=== PATIENT | female | born 1965 | race Caucasian/White ===

== ENCOUNTER 2017-12-23 13:50 | Emergency (ER) | payer OTHER, SELFPAY ==
[2017-12-23] MEDS: Lidocaine 1% Multi-Dose 50 ML VIAL IJ (14:00)
== END 2017-12-23 14:22 | disposition home or self-care (01) ==
PROVIDERS: Emergency Provider Emergency Medicine; PCP Internal Medicine
DX: S81.822A Laceration with foreign body, left lower leg, initial encounter (principal); W26.0XXA Contact with knife, initial encounter; Y99.0 Civilian activity done for income or pay
CPT/HCPCS: 12001

== ENCOUNTER 2018-09-27 10:33 | Emergency (ER) | payer MEDICAID, SELFPAY ==
[2018-09-27 10:36] VITALS: BP 128/74; PULSE 70; RESP 14; TEMP 36.7; O2SAT 98
--- NOTE | 2018-09-27 10:56 | W.ED.GENAD ---
Discharge Plan Disposition Patient Disposition: HOME Condition: Stable Discharge Details Chief Complaint: RashLesion Clinical Impression: Contact dermatitis Primary Care Provider: Arie Hill ED Provider: Rene Luevano Home Meds and New Rx's Prescriptions: No Action Mirena 1 EACH intrauterine device 1 ea Intrauterine DIRECTED RF: 0 gabapentin 600 MG tablet 2,300 mg PO HS RF: 0 bupropion HCl 75 MG tablet 200 mg PO DAILY RF: 0 Vyvanse 70 MG capsule 70 mg PO DAILY RF: 0 ibuprofen 800 MG tablet 800 mg PO PRN PRNRF: 0 Discharge Instructions Instructions: Dermatitis (ED) Additional Instructions: use over the counter hydrocotrisone cream. You can use benadryl as needed for itching as well, follow dosing instructions on packing if not better in a week see your primary care provider return to the emergency department if you develop redness that is spreading or fevers Discharge Data Discharge Date/Time-TO BE ENTERED AT DEPARTURE: 09/27/18 11:00 Medical Decision Making 52 yo female states she put a peter black head removal cream on her face Monday. Has had itching and been picking at the skin since. Dneies fevers, severe pain. Has pick fishman on lower face with no erythema, small papules across lower face consistent with local dermatitis. Will have her start topical steroids and return precautions given, advised f/u with pcp. Has no findings to suggest infection at this time Differential Diagnosis contact dermatitis, pruritis HPI General Mode of arrival: ambulatory. Date/Time Provider Initiated Documentation: 09/27/18 10:39. Limitations to Documentation: no limitations. Information obtained by: patient. History of Present Illness 52 year old F presents to the emergency department with the chief complaint of face rash, described as moderate, Quality is described as other (itching), and is localized to the face. Patient reports no radiation. Patient started experiencing this day(s) (2) and it has been constant. No relieving factors improve symptom(s), No exacerbating factors reported . Patient notes no other symptoms.. Patient did receive the following treatments prior to arrival, none Related Data Home Medications Medication Instructions Recorded Confirmed levonorgestrel [Mirena] 1 ea INTRAUTERINE DIRECTED 12/11/12 09/27/18 gabapentin 2,300 mg PO HS 08/28/14 09/27/18 ibuprofen 800 mg PO PRN PRN 01/22/15 09/27/18 bupropion HCl 200 mg PO DAILY tab-cap 10/15/15 09/27/18 lisdexamfetamine [Vyvanse] 70 mg PO DAILY tab-cap 02/18/16 09/27/18 Allergies Allergy/AdvReac Type Severity Reaction Status Date / Time No Known Allergies Allergy Unverified 09/27/18 10:41 General Stated Complaint: RashLesion LORETO: 3 Review of Systems Review of Systems All systems reviewed & are unremarkable except as noted in HPI and below Constitutional Denies chills, Denies fever(s) and Denies weakness Cardiovascular Denies chest pain and Denies dyspnea Respiratory Denies cough and Denies dyspnea Gastrointestinal Denies abdominal pain, Denies nausea and Denies vomiting Musculoskeletal Denies joint swelling Neurologic Denies weakness PFSH Medical History Abnormal Pap Anxiety Depression Substance abuse Ulcerative colitis manic disorder Surgical History Cervical Procedure Family History Other Diabetes Hyperlipidemia Mental disorder Personal history of malignant neoplasm Social History Smoking/Tobacco Use Status: Never Alcohol Intake: former Drug use: Current Sobriety Do you feel safe at home: Yes Do you feel safe in your relationship?: Yes Exam Const General: no acute distress Orientation: alert HENMT Head: normal to inspection Ears: external ears normal General nose exam: external nose normal Mouth: moist mucous membranes Eyes General: appearance normal, both eyes and all related structures Neck Neck: normal visual inspection Resp Effort & Inspection: normal respiratory effort and able to speak in complete sentences Cardio Rate: regular rate Skin General skin exam: elasticity normal Neuro General: alert and oriented x3 Extrem General: normal to inspection Psych Mental Status: mental status grossly normal Course Vital Signs Temperature 36.7 C 09/27/18 10:36 Pulse 70 09/27/18 10:36 Respiratory Rate 14 09/27/18 10:36 Blood Pressure 128/74 09/27/18 10:36 Pulse Oximetry 98 09/27/18 10:36 Temperature 36.7 C 09/27/18 10:36 Temperature Source Skin 09/27/18 10:36 Pulse 70 09/27/18 10:36 Respiratory Rate 14 09/27/18 10:36 Respiratory Effort 09/27/18 10:42 Blood Pressure 128/74 09/27/18 10:36 Blood Pressure Position Sitting 09/27/18 10:36 Pulse Oximetry 98 09/27/18 10:36 Oxygen Delivery Method Room Air 09/27/18 10:36 Oxygen Flow Rate 0 09/27/18 10:36 Pain Level 8 09/27/18 10:36
--- NOTE | 2018-09-27 10:59 | ED.GENADUL_ITS ---
Discharge Plan Disposition Patient Disposition: HOME Condition: Stable Discharge Details Chief Complaint: RashLesion Clinical Impression: Contact dermatitis Primary Care Provider: Arie Hill ED Provider: Rene Luevano Home Meds and New Rx's Prescriptions: No Action Mirena 1 EACH intrauterine device 1 ea Intrauterine DIRECTED RF: 0 gabapentin 600 MG tablet 2,300 mg PO HS RF: 0 bupropion HCl 75 MG tablet 200 mg PO DAILY RF: 0 Vyvanse 70 MG capsule 70 mg PO DAILY RF: 0 ibuprofen 800 MG tablet 800 mg PO PRN PRNRF: 0 Discharge Instructions Instructions: Dermatitis (ED) Additional Instructions: use over the counter hydrocotrisone cream. You can use benadryl as needed for itching as well, follow dosing instructions on packing if not better in a week see your primary care provider return to the emergency department if you develop redness that is spreading or fevers Discharge Data Discharge Date/Time-TO BE ENTERED AT DEPARTURE: 09/27/18 11:00 Medical Decision Making 52 yo female states she put a peter black head removal cream on her face Monday. Has had itching and been picking at the skin since. Dneies fevers, severe pain. Has pick fishman on lower face with no erythema, small papules across lower face consistent with local dermatitis. Will have her start topical steroids and return precautions given, advised f/u with pcp. Has no findings to suggest infection at this time Differential Diagnosis contact dermatitis, pruritis HPI General Mode of arrival: ambulatory . Date/Time Provider Initiated Documentation: 09/27/18 10:39 . Limitations to Documentation: no limitations . Information obtained by: patient . History of Present Illness 52 year old F presents to the emergency department with the chief complaint of face rash, described as moderate, Quality is described as other (itching), and is localized to the face. Patient reports no radiation. Patient started exp eriencing this day(s) (2) and it has been constant. No relieving factors improve symptom(s), No exacerbating factors reported . Patient notes no other symptoms.. Patient did receive the following treatments prior to arrival, none Related Data Home Medications Medication Instructions Recorded Confirmed levonorgestrel [Mirena] 1 ea INTRAUTERINE DIRECTED 12/11/12 09/27/18 gabapentin 2,300 mg PO HS 08/28/14 09/27/18 ibuprofen 800 mg PO PRN PRN 01/22/15 09/27/18 bupropion HCl 200 mg PO DAILY tab-cap 10/15/15 09/27/18 lisdexamfetamine [Vyvanse] 70 mg PO DAILY tab-cap 02/18/16 09/27/18 Allergies Allergy/AdvReac Type Severity Reaction Status Date / Time No Known Allergies Allergy Unverified 09/27/18 10:41 General Stated Complaint: RashLesion LORETO: 3 Review of Systems Review of Systems All systems reviewed & are unremarkable except as noted in HPI and below Constitutional Denies chills, Denies fever(s) and Denies weakness Cardiovascular Denies chest pain and Denies dyspnea Respiratory Denies cough and Denies dyspnea Gastrointestinal Denies abdominal pain, Denies nausea and Denies vomiting Musculoskeletal Denies joint swelling Neurologic Denies weakness PFSH Medical History Abnormal Pap Anxiety Depression Substance abuse Ulcerative colitis manic disorder Surgical History Cervical Procedure Family History Other Diabetes Hyperlipidemia Mental disorder Personal history of malignant neoplasm Social History Smoking/Tobacco Use Status: Never Alcohol Intake: former Drug use: Current Sobriety Do you feel safe at home: Yes Do you feel safe in your relationship?: Yes Exam Const General: no acute distress Orientation: alert HENMT Head: normal to inspection Ears: external ears normal General nose exam: external nose normal Mouth: moist mucous membranes Eyes General: appearance normal, both eyes and all related structures Neck Neck: normal visual inspection Resp Effort & Inspection: normal respiratory effort and able to speak in complete sentences Cardio Rate: regular rate Skin General skin exam: elasticity normal Neuro General: alert and oriented x3 Extrem General: normal to inspection Psych Mental Status: mental status grossly normal Course Vital Signs Temperature 36.7 C 09/27/18 10:36 Pulse 70 09/27/18 10:36 Respiratory Rate 14 09/27/18 10:36 Blood Pressure 128/74 09/27/18 10:36 Pulse Oximetry 98 09/27/18 10:36 Temperature 36.7 C 09/27/18 10:36 Temperature Source Skin 09/27/18 10:36 Pulse 70 09/27/18 10:36 Respiratory Rate 14 09/27/18 10:36 Respiratory Effort 09/27/18 10:42 Blood Pressure 128/74 09/27/18 10:36 Blood Pressure Position Sitting 09/27/18 10:36 Pulse Oximetry 98 09/27/18 10:36 Oxygen Delivery Method Room Air 09/27/18 10:36 Oxygen Flow Rate 0 09/27/18 10:36 Pain Level 8 09/27/18 10:36
== END 2018-09-27 11:00 | disposition home or self-care (01) ==
PROVIDERS: Emergency Provider Emergency Medicine; PCP Internal Medicine
DX: L50.9 Urticaria, unspecified (principal)
CPT/HCPCS: 99282

== ENCOUNTER 2018-12-02 01:43 | Emergency (ER) | payer OTHER, MEDICAID, SELFPAY ==
--- NOTE | 2018-12-02 01:30 | ED.GENADUL_ITS ---
Discharge Plan Disposition Patient Disposition: HOME Condition: Good Discharge Details Chief Complaint: Orthopedic Clinical Impression: Contusion of foot Primary Care Provider: Arie Hill ED Provider: Mark Anthony Cazares Meds and New Rx's Prescriptions: Continued Mirena 1 EACH intrauterine device 1 ea Intrauterine DIRECTED RF: 0 gabapentin 600 MG tablet 2,300 mg PO HS RF: 0 bupropion HCl 75 MG tablet 200 mg PO DAILY RF: 0 Vyvanse 70 MG capsule 70 mg PO DAILY RF: 0 Changed ibuprofen 800 MG tablet 800 mg PO Q8H PRNQty: 15 RF: 0 Discharge Instructions Instructions: Foot Contusion (ED) Additional Instructions: X-ray is negative for fracture. You have a contusion. Ice and Motrin should get this better over time. Follow-up with your doctor midweek if not better. Weight-bear as tolerated. Keep leg elevated. Return to ED for problems. Stand Alone Forms: Work Release Referrals: Arie Hill MD [Primary Care Provider] - Medical Decision Making Patient here complaining of severe pain after dropping a steel dinner plate on her foot. There is a slight red genoveva in the anterior portion of the ankle. There is no laceration, abrasion, swelling. She is neurovascularly intact distally. Very doubtful that a fracture occurred but x-ray will be obtained. Patient is given Toradol for pain. X-ray per my read and preliminary radiology read is negative for fracture. Patient will be treated for contusion. She is to use ice and ibuprofen. Keep her leg elevated. I have given our work note and referred her to primary care midweek if not better. HPI General Mode of arrival: EMS . Date/Time Provider Initiated Documentation: 12/02/18 01:49 . Limitations to Documentation: no limitations . Information obtained by: patient . HPI Narrative: Patient presents to ED with complaint of right ankle/foot pain. Patient reports dropping a steel plate on her foot at work. This occurred around 7:00 in the evening. She finished her shift. She has not had anything for pain as she did not have Tylenol or Motrin at home. Eventually she reports the pain became so severe she called an ambulance and was transported in. Related Data Home Medications Medication Instructions Recorded Confirmed Mirena 1 ea INTRAUTERINE DIRECTED 12/11/12 12/02/18 gabapentin 2,300 mg PO HS 08/28/14 12/02/18 bupropion HCl 200 mg PO DAILY tab-cap 10/15/15 12/02/18 Vyvanse 70 mg PO DAILY tab-cap 02/18/16 12/02/18 ibuprofen 800 mg PO Q8H PRN #15 tab 12/02/18 Previous Rx's Medication Instructions Recorded ibuprofen 800 mg PO Q8H PRN #15 tab 12/02/18 Allergies Allergy/AdvReac Type Severity Reaction Status Date / Time No Known Allergies Allergy Unverified 12/02/18 01:34 General LORETO: 3 Review of Systems Constitutional Denies weakness Musculoskeletal Denies deformity, Denies joint swelling and Denies tingling Integumentary/Breasts Denies wounds Neurologic Denies sensory deficit, Denies tingling and Denies weakness PFS Medical History Abnormal Pap Anxiety Depression manic disorder Substance abuse Ulcerative colitis Surgical History Cervical Procedure Family History (Updated 09/15/13 @ 21:28 by ) Other Diabetes Hyperlipidemia Mental disorder Personal history of malignant neoplasm Social History Smoking/Tobacco Use Status: Never Alcohol Intake: former Drug use: Current Sobriety Do you feel safe at home: Yes Do you feel safe in your relationship?: Yes Exam Const General: in distress (complaining of pain and crying) Orientation: alert and oriented x3 Skin Trauma: no lacerations or abrasions Neuro General: alert, oriented x3 and no focal motor deficits Sensory Exam: no sensory deficits noted Extrem Right lower extremity: lower leg Details: normal to inspection; no tenderness, ankle Details: tenderness Location: anteromedially and abnormal ROM; no swelling and edema and foot (DP and PT pulse in tact. Neuro in tact. ) Details: normal to inspection and toes with normal ROM; no tenderness
[2018-12-02 01:31] VITALS: BP 154/95; PULSE 88; RESP 18; TEMP 36.7; O2SAT 99
--- NOTE | 2018-12-02 01:49 | DI.RAD_ITS ---
SYMPTOM/DIAGNOSIS: TRAUMA RIGHT ANKLE: 12/02 Three views were obtained. The ankle mortise appears well maintained. No fracture is seen.
[2018-12-02] MEDS: Ketorolac 30 MG/ML VIAL IM (02:09)
--- NOTE | 2018-12-02 03:16 | DI.VRAD_ITS ---
EXAM: XR Right Ankle EXAM DATE/TIME: 12/02/2018 1:51 AM CLINICAL HISTORY: 53 years old, female; Injury or trauma; Injury history: Per PT: Dropped steel dish on ankle; Initial encounter; Blunt trauma; Right TECHNIQUE: Imaging protocol: XR Right ankle. Views: 3 or more views. COMPARISON: No relevant prior studies available. FINDINGS: Bones/joints: Normal. Soft tissues: Normal. IMPRESSION: No acute findings. Dictated and Authenticated by: Ariel Howard MD. Ordering:RHETT Hopson MD
== END 2018-12-02 04:05 | disposition home or self-care (01) ==
PROVIDERS: Emergency Provider Emergency Medicine; PCP Internal Medicine
DX: S90.31XA Contusion of right foot, initial encounter (principal); W20.8XXA Other cause of strike by thrown, projected or falling object, initial encounter
CPT/HCPCS: 96372; 99284; 73610; 99283; J1885

== ENCOUNTER 2019-12-31 03:20 | Outpatient (CLI) | payer MEDICAID, SELFPAY | END 2019-12-31 03:40 | PROVIDERS: PCP Internal Medicine; Visit Provider Internal Medicine | DX: R69 Illness, unspecified (principal) ==

== ENCOUNTER 2021-01-25 17:27 | Outpatient (REF) | payer MEDICAID, SELFPAY ==
[2021-01-27 12:59] LABS: COVID-19 RT-PCR UVMMC Result Negative (Negative)
== END 2021-01-25 17:28 | disposition home or self-care (01) ==
LOC: NCHCN 17:27
PROVIDERS: PCP Internal Medicine; Visit Provider Family Medicine
DX: Z20.822 Contact with and (suspected) exposure to COVID-19 (principal)
CPT/HCPCS: U0003

== ENCOUNTER 2021-04-08 15:40 | Outpatient (REF) | payer MEDICAID, SELFPAY ==
[2021-04-08 21:31] LABS: Lithium < 0.2 mmol/l (0.6-1.2)
[2021-04-08 21:44] LABS: ALT 32 U/L (14-59); AST 20 U/L (15-37); Albumin 4.5 g/dL (3.4-5.0); Alkaline Phosphatase 105 U/L (46-116); Anion Gap 8.7 mmol/L (3-11); BUN 22 mg/dL (7-18); Bilirubin, Total 0.4 mg/dL (0.2-1.0); CO2 27.3 mmol/L (21.0-32.0); CREATININE 0.9 mg/dL (0.55-1.02); Calcium 9.7 mg/dL (8.5-10.1); Chloride 104 mmol/L (98-107); Glucose 79 mg/dL (74-106); Potassium 4.3 mmol/L (3.5-5.1); Sodium 140 mmol/L (136-145); TSH (W/Ref FT4) 1.15 uIU/mL (0.36-3.74); Total Protein 7.8 g/dL (6.4-8.2)
== END 2021-04-08 15:41 | disposition home or self-care (01) ==
LOC: NCHCN 15:40
PROVIDERS: PCP Internal Medicine; Visit Provider Internal Medicine
DX: F90.9 Attention-deficit hyperactivity disorder, unspecified type (principal); F33.1 Major depressive disorder, recurrent, moderate; Z51.81 Encounter for therapeutic drug level monitoring; Z79.899 Other long term (current) drug therapy
CPT/HCPCS: 80053; 80178; 84443

== ENCOUNTER 2023-08-15 20:36 | Outpatient (REF) | payer OTHER, SELFPAY | END 2023-08-15 20:37 | disposition home or self-care (01) | LOC: LBN 20:36 | PROVIDERS: PCP Internal Medicine; Visit Provider Physician Assistant | DX: N39.0 Urinary tract infection, site not specified (principal); B96.29 Other Escherichia coli [E. coli] as the cause of diseases classified elsewhere | CPT/HCPCS: 87077; 87086; 87186 ==

== ENCOUNTER 2024-07-22 12:46 | Outpatient (REF) | payer OTHER, SELFPAY ==
[2024-07-22 14:57] LABS: HCT 41.3 % (36.0-46.0); HGB 14.2 g/dL (11.2-15.7); MCH 29.8 pg (27.0-33.0); MCHC 34.4 % (32.0-36.0); MCV 87 fL (80-95); MPV 8.5 fL (8.0-11.0); Platelet Count 339 10^3/uL (130-400); RBC 4.76 10^6/uL (3.93-5.22); RDW 11.9 % (11.7-14.6); RDW-SD 37.9 fL; WBC 5.67 10^3/uL (4.4-10.8)
[2024-07-22 15:57] LABS: ALT 23 U/L (14-59); AST 16 U/L (15-37); Albumin 4.3 g/dL (3.4-5.0); Alkaline Phosphatase 103 U/L (46-116); Anion Gap 8.7 mmol/L (3-11); BUN 21 mg/dL (7-18); Bilirubin, Total 0.5 mg/dL (0.2-1.0); CO2 27.3 mmol/L (21.0-32.0); CREATININE 0.6 mg/dL (0.55-1.02); Calcium 9.3 mg/dL (8.5-10.1); Calculated LDL 130 mg/dL (<100); Chloride 107 mmol/L (98-107); Cholesterol 231 mg/dL (<200); Estimated GFR 103.98 (mL/min/1.73m2); Folate 16.7 ng/mL (8.6-20.0); Glucose 88 mg/dL (74-106); HDL Cholesterol 94 mg/dL (>or=50); Potassium 4.3 mmol/L (3.5-5.1); Sodium 143 mmol/L (136-145); TSH (W/Ref FT4) 0.39 uIU/mL (0.36-3.74); Total Protein 7.6 g/dL (6.4-8.2); Triglyceride 39 mg/dL (<150); Vitamin B12 187 pg/mL (193-986); Vitamin D 25 Total 28 ng/mL (30-100)
== END 2024-07-22 12:47 | disposition home or self-care (01) ==
LOC: NCHCN 12:46
PROVIDERS: PCP Internal Medicine; Visit Provider Family Medicine
DX: F33.1 Major depressive disorder, recurrent, moderate (principal); Z00.00 Encounter for general adult medical examination without abnormal findings; K51.90 Ulcerative colitis, unspecified, without complications
CPT/HCPCS: 80053; 80061; 82306; 85027; 82607; 82746; 84443

== ENCOUNTER 2024-09-30 16:00 | Outpatient (REF) | payer OTHER, SELFPAY ==
--- NOTE | 2024-09-30 14:30 | PAPFT_PTH ---
PATIENT: Raquel Castillo LOC: NO U#:[id number] AGE/SX: 58/F ROOM: RE09/30/[address]: Ana Luevano NP : 1965 BED: DIS: 09/30/2024 SPEC #: [id number] RECD: 09/30/24 17:57 STATUS: VERONICA REMinerva #: [id number] RUTHIE: 09/30/24 14:[address]: Chloé FELDER,Ana DEPT: [facility] Cytology RECD BY: Nirmala Kelley ENTERED: 09/30/24 17:57 SP TYPE: PAPFT OTHR DR: Arie Hill Tissues: 1 - CX/ENDOCX FOR PAP SMEARS Procedures: PAP THIN PREP/[facility] Screening HPV DNA PROBE Comments: [id number] (HPV 16 & 18/45) (CHLAMYDIA/GC)
[2024-10-01 12:01] LABS: Chlamydia Result Negative (Negative); GC Result Negative (Negative)
== END 2024-09-30 16:01 | disposition home or self-care (01) ==
LOC: LBN 16:00
PROVIDERS: PCP Internal Medicine; Visit Provider Nurse Practitioner Women's Health
DX: Z12.4 Encounter for screening for malignant neoplasm of cervix (principal)
CPT/HCPCS: 87491; 87591; 88142; 87624